=== PATIENT | male | born 1965 | race Caucasian/White ===

== ENCOUNTER 2016-07-13 17:30 | Emergency (ER) | payer MEDICARE ==
[2016-07-13 20:15] LABS: HEMOGLOBIN 17.2 gm/dl (14.0-17.5); RED BLOOD COUNT 5.91 M/UL (4.20-5.50); WHITE BLOOD COUNT 10.3 K/UL (4.5-11.0)
[2016-07-13 20:29] LABS: BUN/CREATININE RATIO 13 (0-10)
[2016-11-26] MEDS ORDERED: ZOVIRAX 800 MG800 MG PO (17:25)
[2016-11-26] MEDS ORDERED: DIFLUCAN200 MG PO (17:25)
[2016-11-26] MEDS ORDERED: LEVOFLOXACIN500 MG PO (17:26)
[2016-11-26] MEDS ORDERED: ZOFRAN ODT8 MG PO (17:28)
== END 2016-07-13 22:10 | disposition home or self-care (01) ==
LOC: ER1 17:30
PROVIDERS: Emergency Medicine
DX: I82.401 Acute embolism and thrombosis of unspecified deep veins of right lower extremity (principal); M79.661 Pain in right lower leg; I82.411 Acute embolism and thrombosis of right femoral vein; I82.431 Acute embolism and thrombosis of right popliteal vein; I82.491 Acute embolism and thrombosis of other specified deep vein of right lower extremity
CPT/HCPCS: 36415; 80048; 85025; 85379; 85610; 85730; 93971; 99283

== ENCOUNTER 2016-08-10 22:37 | Inpatient (IN) | payer MEDICARE ==
[~2016-08-10] VITALS: Ht 175.3 cm; Wt 104.3 kg
[2016-08-10 23:48] LABS: HEMOGLOBIN 17.2 gm/dl (14.0-17.5); RED BLOOD COUNT 6.01 M/UL (4.20-5.50); WHITE BLOOD COUNT 13.4 K/UL (4.5-11.0)
[2016-08-11 00:08] LABS: BUN/CREATININE RATIO 11 (0-10)
[2016-08-11] MEDS ORDERED: ASPIRIN81 MG PO (05:42)
[2016-08-11] MEDS ORDERED: K-DUR TAB 20 M20 MEQ PO (05:43)
[2016-08-11] MEDS ORDERED: CLARITIN 10MG T10 MG PO (05:44)
[2016-08-11] MEDS ORDERED: GLUCOPHAGE1000 MG PO (05:44)
[2016-08-11] MEDS ORDERED: NEURONTIN 100100 MG PO (05:44)
[2016-08-11] MEDS ORDERED: PRAVACHOL20 MG PO (05:45)
[2016-08-11] MEDS ORDERED: LASIX 40 MG TAB40 MG PO (05:45)
[2016-08-11] MEDS ORDERED: LOPRESSOR 25 MG25 MG PO (05:46)
[2016-08-11] MEDS ORDERED: COUMADIN5 MG PO (05:47)
[2016-08-11 12:18] LABS: AMYLASE, BODY FLUID 17 U/L; TOTAL PROTEIN, BODY FLUID 4.3 gm/dL
[2016-08-11 12:22] LABS: BODY FLUID SOURCE PLEURAL
[2016-08-11 16:16] LABS: LDH, BODY FLUID 302 U/L
[2016-08-12 04:50] LABS: HEMOGLOBIN 15.4 gm/dl (14.0-17.5); RED BLOOD COUNT 5.48 M/UL (4.20-5.50); WHITE BLOOD COUNT 13.6 K/UL (4.5-11.0)
[2016-08-12 05:23] LABS: BUN/CREATININE RATIO 11 (0-10)
[2016-08-13 08:13] LABS: HEMOGLOBIN 15.9 gm/dl (14.0-17.5); RED BLOOD COUNT 5.58 M/UL (4.20-5.50); WHITE BLOOD COUNT 12.3 K/UL (4.5-11.0)
[2016-08-13 08:24] LABS: BUN/CREATININE RATIO 9 (0-10)
[2016-08-13] MEDS ORDERED: LOVENOX SYR100 MG/ML SQ (14:29)
[2016-08-13] MEDS ORDERED: LEVAQUIN750 MG PO (14:33)
[2016-08-13] MEDS ORDERED: PERCOCET 5-3251 EACH PO (14:33)
[2016-11-26] MEDS ORDERED: DIFLUCAN200 MG PO (17:25)
[2016-11-26] MEDS ORDERED: ZOVIRAX 800 MG800 MG PO (17:25)
[2016-11-26] MEDS ORDERED: LEVOFLOXACIN500 MG PO (17:26)
[2016-11-26] MEDS ORDERED: ZOFRAN ODT8 MG PO (17:28)
== END 2016-08-13 17:00 | disposition home or self-care (01) | DRG 180 ==
LOC: ER1 22:37 → ZEROF 08-11 02:59 → CCU 08-11 02:59 → MED SURG 4 08-11 13:00
PROVIDERS: Emergency Medicine; Family Medicine; ADMIT Internal Medicine
PROC: 0W9B3ZX Drainage of Left Pleural Cavity, Percutaneous Approach, Diagnostic (ICD-10-PCS; principal; 2016-08-11)
DX: C34.12 Malignant neoplasm of upper lobe, left bronchus or lung (principal); J96.01 Acute respiratory failure with hypoxia; J18.9 Pneumonia, unspecified organism; J91.0 Malignant pleural effusion; J98.11 Atelectasis; I82.401 Acute embolism and thrombosis of unspecified deep veins of right lower extremity; E11.9 Type 2 diabetes mellitus without complications; I10 Essential (primary) hypertension; E78.5 Hyperlipidemia, unspecified; Z87.74 Personal history of (corrected) congenital malformations of heart and circulatory system; Z79.01 Long term (current) use of anticoagulants; Z79.84 Long term (current) use of oral hypoglycemic drugs; Z79.82 Long term (current) use of aspirin; Z79.899 Other long term (current) drug therapy; Z98.890 Other specified postprocedural states; Z82.49 Family history of ischemic heart disease and other diseases of the circulatory system; Z80.9 Family history of malignant neoplasm, unspecified
CPT/HCPCS: 36415; 36600; 71010; 71250; 80048; 80053; 81001; 82150; 82803; 82945; 82962; 83605; 83615; 83880; 84157; 84484; 85025; 85027; 85610; 85730; 87015; 87040; 87070; 87086; 87116; 87205; 89051; 93005; 96365; 96375; 99291; J1650; J1885; J1956; J2270; J2543; J3370; J7050; Q9963

== ENCOUNTER → 2016-08-15 | Outpatient (CLI) | payer MEDICARE ==
[~2016-08-15] MED LIST: ASPIRIN81 MG PO; CLARITIN 10MG T10 MG PO; COUMADIN5 MG PO; DIFLUCAN200 MG PO; GLUCOPHAGE1000 MG PO; K-DUR TAB 20 M20 MEQ PO; LASIX 40 MG TAB40 MG PO; LEVAQUIN750 MG PO; LEVOFLOXACIN500 MG PO; LOPRESSOR 25 MG25 MG PO; LOVENOX SYR100 MG/ML SQ; NEURONTIN 100100 MG PO; PERCOCET 5-3251 EACH PO; PRAVACHOL20 MG PO; ZOFRAN ODT8 MG PO; ZOVIRAX 800 MG800 MG PO
== END ==
LOC: EXRD 10:54
DX: J90 Pleural effusion, not elsewhere classified (principal)
CPT/HCPCS: 71020

== ENCOUNTER 2016-11-02 17:41 | Emergency (ER) | payer MEDICARE, BC ==
[~2016-11-02 17:41] MED LIST changes: -DIFLUCAN200 MG PO; -LEVOFLOXACIN500 MG PO; -ZOFRAN ODT8 MG PO; -ZOVIRAX 800 MG800 MG PO
[2016-11-02 21:07] LABS: BUN/CREATININE RATIO 15 (0-10)
[2016-11-02 21:31] LABS: HEMOGLOBIN 7.8 gm/dl (14.0-17.5); RED BLOOD COUNT 2.9 M/UL (4.20-5.50); WHITE BLOOD COUNT 1.9 K/UL (4.5-11.0)
== END 2016-11-03 05:25 | disposition home or self-care (01) ==
LOC: ER1 17:41
PROVIDERS: Family Medicine
DX: D69.6 Thrombocytopenia, unspecified (principal); C95.90 Leukemia, unspecified not having achieved remission; L50.9 Urticaria, unspecified
CPT/HCPCS: 36415; 80053; 85025; 86900; 86901; 96374; 96375; 99283; J1200; J2405; J2930; P9037

== ENCOUNTER 2021-06-26 12:17 | Emergency (ER) | payer MEDICARE, OTHER ==
[~2021-06-26 12:17] MED LIST changes: +DIFLUCAN200 MG PO; +LEVOFLOXACIN500 MG PO; +NORCO 5-325 TA1 EACH PO; +ZITHROMAX250 MG PO; +ZOFRAN ODT8 MG PO; +ZOVIRAX 800 MG800 MG PO
[2021-06-26 12:41] LABS: HEMOGLOBIN 16.6 gm/dl (14.0-17.5); RED BLOOD COUNT 5.3 M/UL (4.20-5.50); WHITE BLOOD COUNT 10.2 K/UL (4.5-11.0)
[2021-06-26 13:17] LABS: BUN/CREATININE RATIO 15 (0-10)
== END 2021-06-26 17:45 | disposition home or self-care (01) ==
LOC: ER1 12:17
DX: R07.89 Other chest pain (principal); E78.5 Hyperlipidemia, unspecified; E11.9 Type 2 diabetes mellitus without complications; Z79.01 Long term (current) use of anticoagulants; Z95.1 Presence of aortocoronary bypass graft
CPT/HCPCS: 71045; 80053; 82550; 82553; 84484; 85025; 93005; 99285